=== PATIENT | female | born 1985 | race Caucasian/White ===

== ENCOUNTER → 2016-11-18 | Outpatient (CLI) | payer OTHER ==
[~2016-11-18] MED LIST: FLOM5CAP PO; PERC5TAB6 PO
--- NOTE | 2016-11-19 02:20 | REP ---
Clinical: Nephroureterolithiasis. Technique: Single supine view of the abdomen and pelvis. Comparison: None. Findings: Bilateral renal calcifications are suggested measuring 6 mm in the right kidney and 8 mm in left kidney. No obvious ureteral calcifications are appreciated. However, evaluation of the urinary tract system is somewhat limited due to technique and overlying bowel gas pattern. Mild to moderate fecal stasis and constipation cannot be excluded. No evidence for bowel obstruction. No organomegaly. Skeletal structures are intact. Impression: Bilateral renal calcifications suggested. Further evaluation of the urinary tract system is limited. Fecal stasis suggested. Signed by Werner Grande MD 11/19/2016 02:11 A
== END ==
LOC: M SMT 09:08
PROVIDERS: ATTEND Nurse Practitioner Women's Health
DX: N20.1 Calculus of ureter (principal)

== ENCOUNTER → 2016-12-02 | Day surgery (SDC) | payer OTHER ==
[~2016-12-02] VITALS: Ht 157.5 cm; Wt 63.5 kg
[~2016-12-02] MED LIST changes: +CIPR500T19 PO; +LIDOCAINE 2% INJ 100 MG/5 ML SDV (FOR ANES.) As Ordered ONE; +LR 1,000 ML IV ONE; +METOCLOPRAMIDE INJ 10MG/2ML VIAL (J2765) As Ordered ONE; +METOCLOPRAMIDE INJ 10MG/2ML VIAL (J2765) IV ONE; +MIDAZOLAM INJ 2 MG/2 ML VIAL (J2250) As Ordered ONE; +ONDANSETRON 4MG/2ML VIAL (J2405) As Ordered ONE; +OXYC1TAB23 PO; +PERCOCET 5MG/325MG TAB PO PRN; +PROPOFOL 200 MG/20 ML VIAL As Ordered ONE; +fentaNYL 100 MCG/2 ML INJECTION (J3010) As Ordered ONE
[2016-12-02 09:41] LABS: CONTROL LINE UCG INT CTR LINE PRESENT
[2016-12-02 09:44] LABS: INR 1.01
[2016-12-02 13:20] VITALS: BP 97/52
--- NOTE | 2016-12-03 02:48 | REP ---
Clinical: Nephrolithiasis. Comparison: 11/18/2016. Findings: Single supine view of the abdomen demonstrates bilateral intrarenal calculi essentially unchanged in appearance. Calcifications overlying the right renal silhouette measure up to approximately 5 mm and calcifications overlying the left renal silhouette measure up to approximately 6.5 mm. Bowel gas pattern is nonspecific. Skeletal structures are intact. Impression: Bilateral nephrolithiasis similar to prior examination. Signed by Werner Grande MD 12/03/2016 02:40 A
--- NOTE | 2016-12-03 06:35 | RO ---
DATE OF PROCEDURE: 12/02/2016 PREPROCEDURE DIAGNOSIS: Left renal stone. POSTPROCEDURE DIAGNOSIS: Left renal stone. FINDINGS: This is an 8 mm left renal stone in the mid pole. PROCEDURE: Left extracorporeal shock wave lithotripsy. SURGEON: Remi Henderson MD GEOTECHNICIAN: None. ANESTHESIA: Monitored anesthesia care (MAC). COMPLICATIONS: None. ESTIMATED BLOOD LOSS: N/A. HISTORY OF PRESENT ILLNESS: 31-year-old female patient with an 8 mm stone in mid collecting system of the left kidney. For this reason, she has consented for a left extracorporeal shock wave lithotripsy. DESCRIPTION OF PROCEDURE: With the patient in supine position under after finding the stone with ultrasound and x-ray, which was fairly easy, we gave a total of 2500 shock wave lithotripsies at a power of 1 to 20. The first 100 shock waves were done at a level of 1 to 5. The following 100 shock wave were done at a level of 6 to 10. The following 100 shock waves were done at a level of 11 to 15. The final 2200 shock waves lithotripsies were done at a power of 16 to 20. There were no complications during surgery. The patient will followup at [facility] in about 2 weeks. She will go home with pain medication and Flomax.
== END ==
LOC: M SDC 08:06
PROVIDERS: ATTEND Urology
DX: N20.0 Calculus of kidney (principal); J45.909 Unspecified asthma, uncomplicated; K21.9 Gastro-esophageal reflux disease without esophagitis; Z79.899 Other long term (current) drug therapy; Z91.010 Allergy to peanuts
CPT/HCPCS: 36415; 50590; 74000; 84703; 85610; J0690; J2250; J2405; J2765; J3010

== ENCOUNTER 2016-12-05 18:32 | Day surgery (SDC) | payer OTHER ==
[~2016-12-05] VITALS: Ht 157.5 cm; Wt 63.0 kg
[~2016-12-05 18:32] MED LIST changes: -CIPR500T19 PO; -CIPR500T3 PO; -LR 1,000 ML IV SCH; -MEPERIDINE INJ 25 MG/ML VIAL (J2175) IV PRN; -OMEP40CA2 PO; -ONDANSETRON 4MG/2ML VIAL (J2405) IV PRN; -OXYC1TAB23 PO; -TYLE650T35 PO; -fentaNYL 100 MCG/2 ML INJECTION (J3010) IV PRN
[2016-12-05] MEDS ORDERED: OXYC1TAB23 PO (19:51)
[2016-12-05] MEDS ORDERED: FLOM5CAP PO (19:51)
[2016-12-05] MEDS ORDERED: CIPROFLOXACIN/D5W 400 MG/200 ML BAG (J0744) As Ordered ONE (20:33)
[2016-12-05] MEDS ORDERED: CONRAY-60 60% 50ML VIAL (Q9961) As Ordered ONE (20:39)
[2016-12-05] MEDS ORDERED: fentaNYL 100 MCG/2 ML INJECTION (J3010) As Ordered ONE (20:41)
[2016-12-05] MEDS ORDERED: MIDAZOLAM INJ 2 MG/2 ML VIAL (J2250) As Ordered ONE (20:41)
[2016-12-05] MEDS ORDERED: PROPOFOL 200 MG/20 ML VIAL As Ordered ONE (20:48)
[2016-12-05] MEDS ORDERED: METOCLOPRAMIDE INJ 10MG/2ML VIAL (J2765) As Ordered ONE (20:48)
[2016-12-05] MEDS ORDERED: ONDANSETRON 4MG/2ML VIAL (J2405) As Ordered ONE (20:48)
[2016-12-05] MEDS ORDERED: LIDOCAINE 2% INJ 100 MG/5 ML SDV (FOR ANES.) As Ordered ONE (20:48)
[2016-12-05] MEDS ORDERED: oxyBUTYnin *DITROPAN XL* 5 MG TABCR PO SCH (21:00)
[2016-12-05] MEDS ORDERED: CIPR500T19 PO (21:14)
[2016-12-05] MEDS ORDERED: MEPERIDINE INJ 25 MG/ML VIAL (J2175) As Ordered ONE (21:31)
[2016-12-05] MEDS: MEPERIDINE INJ 25 MG/ML VIAL (J2175) IV PRN ×2 (21:36→21:43)
[2016-12-05 22:00] VITALS: BP 126/76
[2016-12-05] MEDS ORDERED: fentaNYL 100 MCG/2 ML INJECTION (J3010) IV PRN (22:15)
[2016-12-05] MEDS ORDERED: ONDANSETRON 4MG/2ML VIAL (J2405) IV PRN (22:15)
[2016-12-05 22:30] VITALS: BP 120/75
[2016-12-05 23:00] VITALS: BP 134/76
[2016-12-05] MEDS ORDERED: LR 1,000 ML IV SCH (23:30)
[2016-12-05 23:55] VITALS: BP 121/70
--- NOTE | 2016-12-06 12:11 | CR ---
DATE OF CONSULTATION: 12/05/2016 REASON FOR CONSULTATION: This 31-year-old female was evaluated and consultation was requested by Dr. Duarte on 12/05/2016, for left renal colic. She presents with a one-day history of left renal colic, following left kidney stone shock with lithotripsy (12/02/2016). Irritative voiding symptoms are also noted. Intermittent gross hematuria has also been reported. There is no history of dysuria, stone passage, fever, or constitutional symptoms. PAST MEDICAL HISTORY: Significant for thyroid cyst, gastroesophageal reflux disease, and wisdom teeth removal. REVIEW OF SYSTEMS: Negative for diabetes, hypertension, cardiac or pulmonary pathology, thyroid problems, headaches, epilepsy, cerebrovascular accident (CVA), glaucoma, peptic ulcer disease, cholelithiasis, abdominal surgery or blood-borne diseases. CURRENT MEDICATIONS: Omeprazole. ALLERGIES: She has a questionable allergy to ketorolac. SOCIAL HISTORY: She is and has two children. She is nonsmoker, does not consume alcohol. FAMILY HISTORY: Significant for hypertension on the paternal side. PHYSICAL EXAMINATION: General examination revealed comfortable individual. Her heart rate was 81, respiratory rate was 20, blood pressure was 136/75 and temperature 98.5 degrees Fahrenheit. Palpation of head and neck failed to reveal the presence of lymphadenopathy. Auscultation of chest was clear with normal heart sounds. Examination of the back and abdomen were benign. Urinalysis (12/05/2016) demonstrated a pH of 7.5 with no evidence of leukocytes, nitrites, or microhematuria. Serum hematologic and biochemical indices determination (12/05/2016) demonstrated a hemoglobin of 14.3, leukocyte count of 12.4, and creatinine of 0.9. Computed tomography of the abdomen and pelvis without intravenous contrast (12/05/2016) demonstrated collection of left distal ureteral calculi, the largest of which measured 4-5 mm. ASSESSMENT: 1. Left distal ureteral calculi, status post left kidney stone shock with lithotripsy (12/02/2016). 2. Gastroesophageal reflux disease. PLAN: The above findings were discussed with the patient, her family, and emergency staff. Following nothing by mouth status (1000 hours), cystoscopy, left retrograde ureteropyelography and double-J stent insertion will be performed. Following the procedure, she will be discharged home, and will followup with Dr. Remi Henderson in one week with a KUB radiograph. Should you require additional information, please do not hesitate to contact me. Thanking you for the confidence of your referral. Addendum: Perioperative intravenous ciprofloxacin will be provided.
--- NOTE | 2016-12-06 12:12 | RO ---
DATE OF PROCEDURE: 12/05/2016 PREOPERATIVE DIAGNOSIS: Left distal ureteral calculi status post shock wave lithotripsy. POSTOPERATIVE DIAGNOSIS: Left distal ureteral calculi status post shock wave lithotripsy. PROCEDURE: Cystoscopy, left retrograde ureteropyelography, #6 Tongan universal double J stent insertion, fluoroscopy. SURGEON: Angelito Paetl MD STEEL POURER: ANESTHESIA: General. COMPLICATIONS: None. ESTIMATED BLOOD LOSS: 0 mL. PROCEDURE: In lithotomy position, the patient was prepped and draped in the usual fashion. Weld Engineer plain fluoroscopy of the upper urinary tract confirmed the presence of a left distal ureter faintly radiopaque calculi. A #22 Tongan rigid cystoscope was advanced into the urinary bladder under direct vision. A #21 Tongan rigid cystoscope was advanced into the urinary bladder under direct vision. A urine specimen for culture and sensitivity was obtained. Paez cystoscopy revealed normal ureteric orifices bilaterally and normal urothelium. There was no evidence of tumor, active bleeding or urolithiasis. A normal bladder neck and urethra were noted. A #5 Tongan open ended ureteral catheter was used to intubate the left ureteric orifice. Retrograde ureteropyelography confirmed a distal ureter filling defect with mild proximal hydroureteronephrosis. Under fluoroscopy, a 0.038 Glidewire was advanced up into the left renal pelvis under fluoroscopy. The #5 Tongan open ended ureteral catheter was removed and a #6 Tongan [place] double J stent was advanced under fluoroscopy and direct vision. Its position was confirmed. Prior to removal of the instruments, the bladder was drained. At the conclusion of the procedure, sponge and instrument counts were correct. Estimated blood loss for the procedure was 0 mL. In the recovery room, the patient was alert and stable. DISPOSITION: Exit prescription (ciprofloxacin) provided. KUB and office visit with Remi Henderson MD in one week. Strain urine.
--- NOTE | 2016-12-06 12:13 | REP ---
Retrograde pyelogram: Six views. History: Left stent placement. Retrograde pyelogram. Fluoroscopy time is reported at 16 seconds. Findings: A sequence of six fluoroscopically obtained last image hold spot radiographs of the left abdomen document left ureteral cannulation, contrast injection, and double pigtailed ureteral stent placement. Signed by Deuce Lopez MD 12/06/2016 01:18 P
[2016-12-22] MEDS ORDERED: OMEP40CA2 PO (16:20)
[2016-12-28] MEDS ORDERED: TYLE650T35 PO (09:03)
[2016-12-28] MEDS ORDERED: CIPR500T3 PO (09:03)
== END 2016-12-05 23:55 | disposition home or self-care (01) ==
LOC: EDBD 18:32 → M ED 20:13 → M SDC 20:35 → M PED 22:00 → M SDC 23:55
PROVIDERS: ATTEND Urology
DX: N20.1 Calculus of ureter (principal); K21.9 Gastro-esophageal reflux disease without esophagitis; Z79.899 Other long term (current) drug therapy
CPT/HCPCS: 52332; 74420; 87086; 99284; C1726; C1769; C2617; J0744; J2175; J2250; J2405; J2765; J3010; Q9961

== ENCOUNTER → 2016-12-05 | Day surgery (SDC) | payer OTHER ==
[~2016-12-05] MED LIST changes: +CIPR500T3 PO; -LIDOCAINE 2% INJ 100 MG/5 ML SDV (FOR ANES.) As Ordered ONE; -LR 1,000 ML IV ONE; +LR 1,000 ML IV SCH; +MEPERIDINE INJ 25 MG/ML VIAL (J2175) IV PRN; -METOCLOPRAMIDE INJ 10MG/2ML VIAL (J2765) As Ordered ONE; -METOCLOPRAMIDE INJ 10MG/2ML VIAL (J2765) IV ONE; -MIDAZOLAM INJ 2 MG/2 ML VIAL (J2250) As Ordered ONE; +OMEP40CA2 PO; -ONDANSETRON 4MG/2ML VIAL (J2405) As Ordered ONE; +ONDANSETRON 4MG/2ML VIAL (J2405) IV PRN; +PERC5TAB12 PO; -PERC5TAB6 PO; -PERCOCET 5MG/325MG TAB PO PRN; -PROPOFOL 200 MG/20 ML VIAL As Ordered ONE; +TYLE650T35 PO; -fentaNYL 100 MCG/2 ML INJECTION (J3010) As Ordered ONE; +fentaNYL 100 MCG/2 ML INJECTION (J3010) IV PRN
== END ==
LOC: M SDC 08:00
PROVIDERS: ATTEND Urology
DX: N20.1 Calculus of ureter (principal)

== ENCOUNTER → 2016-12-15 | Outpatient (CLI) | payer OTHER ==
[~2016-12-15] MED LIST changes: +CIPR500T19 PO; +CIPR500T3 PO; +OMEP40CA2 PO; +OXYC1TAB23 PO; +TYLE650T35 PO
--- NOTE | 2016-12-15 10:33 | REP ---
Clinical: Nephrolithiasis. Technique: Single supine view of the abdomen and pelvis. Comparison: 12/02/2016. Findings: Left ureteral stent is in satisfactory position. Bilateral intrarenal calculi are identified measuring up to approximately 5 mm. Calcification adjacent to the distal third of the stent within the pelvis may represent ureteral stone measuring approximately 4 mm. Bowel gas pattern is nonspecific. No organomegaly. Skeletal structures intact. Impression: Urinary tract calcifications as described above. Signed by Werner Grande MD 12/15/2016 10:24 A
== END ==
LOC: M SMT 10:00
PROVIDERS: ATTEND Nurse Practitioner Women's Health
DX: N20.0 Calculus of kidney (principal)

== ENCOUNTER → 2016-12-28 | Day surgery (SDC) | payer OTHER ==
[~2016-12-28] VITALS: Ht 157.5 cm; Wt 63.5 kg
[~2016-12-28] MED LIST changes: +CONRAY-60 60% 50ML VIAL (Q9961) As Ordered ONE; +HYDROmorphone HCL 1 MG/ML SYRINGE (J1170) IV PRN; +LIDOCAINE 2% INJ 100 MG/5 ML SDV (FOR ANES.) As Ordered ONE; +LR 1,000 ML IV SCH; +MIDAZOLAM INJ 2 MG/2 ML VIAL (J2250) As Ordered ONE; +ONDANSETRON 4MG/2ML VIAL (J2405) As Ordered ONE; +ONDANSETRON 4MG/2ML VIAL (J2405) IV PRN; +PERCOCET 5MG/325MG TAB As Ordered ONE; +PERCOCET 5MG/325MG TAB PO PRN; +PROPOFOL 200 MG/20 ML VIAL As Ordered ONE; +dexameTHASONE 4 MG/ML 1ML VIAL (J1100) As Ordered ONE; +fentaNYL 100 MCG/2 ML INJECTION (J3010) IV PRN; +fentaNYL 250 MCG/5 ML INJECTION (J3010) As Ordered ONE
[2016-12-28 06:38] LABS: CONTROL LINE HCG INT CTR LINE PRESENT
[2016-12-28 06:50] LABS: INR 1.01
--- NOTE | 2016-12-28 09:31 | REP ---
RETROGRADE PYELOGRAM: Single view. HISTORY: Kidney stones. 31 seconds of fluoroscopy time is reported. FINDINGS: A single fluoroscopically obtained last image hold spot radiograph of the abdomen documents double pigtail ureteral stent placement on the left. Signed by Deuce Lopez MD 12/28/2016 04:01 P
[2016-12-28 10:15] VITALS: BP 135/82
--- NOTE | 2016-12-29 06:33 | RO ---
DATE OF PROCEDURE: 12/28/2016 PREOPERATIVE DIAGNOSIS: Left ureteral stones. POSTOPERATIVE DIAGNOSIS: Left ureteral stones. FINDINGS: Left ureteral stones times six plus left JJ stent placement. PROCEDURE: Cystoscopy, plus left ureteroscopy plus basket extraction of stones plus left JJ stent exchange #6 [place]ian [place] Cook. SURGEON: Dr. Remi Henderson FURNITURE INSPECTOR: None. ANESTHESIA: General. COMPLICATIONS: None. ESTIMATED BLOOD LOSS: N/A. HISTORY OF PRESENT ILLNESS: 31-year-old female patient that has a left JJ stent and a history of having had a ESWL of left kidney stone. The patient has had multiple fragments passing. She had severe pain. For this reason, a left JJ stent was placed in position. She is here today for cystoscopy plus left ureteroscopy plus basket extraction of stone, possible laser stone lithotripsy, possible JJ stent exchange. She has signed the consent form. PROCEDURE DESCRIPTION: With patient under general anesthesia in supine modified low lithotomy position, after prepping and draping the area of concern which included the entire genitalia and abdomen, we started by introducing a cystoscopy #21-Ghanaian in diameter with 30 lens. The urethra and bladder neck were totally normal. The bladder had a left JJ stent. With endoscopic forceps, we grabbed the JJ stent and pulled it out of the body of the patient. We cut the distal end and passed a guidewire up to the kidney and took out the JJ stent. We then proceeded to actually load a semi-rigid ureteroscope #7-Ghanaian in diameter. In the distal ureter, we found two fragments of stones. With a #0 tip basket 1.9 Ghanaian in diameter, we grabbed each one and took it out of the body of the patient. We then proceeded to actively scope the ureter, distal mid and proximal ureter with a semi-rigid ureteroscope. There were no stones left. At that moment in time, we loaded a parallel ureteral access sheath 28 cm in length, #12-Ghanaian in diameter following the guidewire up to the proximal ureter. We then took out the obturator from inside and left the guidewire parallel to the ureteral access sheath. Through this ureteral access sheath, we placed a flexible ureteroscope Olympus up to the kidney. We did a formal nephroscopy upper pole, mid pole and lower pole. We found in the lower pole three other stones. We grabbed them with a basket each one and took it out of the body of the patient. We then found in the mid pole another 3 mm stone and we grabbed it was a basket and took it out of the body of the patient. We then did a retrograde ureteroscopy by removing the ureteroscope and the ureteral access sheath at the same time. There were no stones left in the kidney and the ureter. We then proceeded to pass a cystoscope and load a guidewire #6-[place]ian [place] Cook to drain the kidney following the guidewire up to the kidney. Once the stent was in good position, we took the guidewire out. We could see the curl in the kidney and the curl in the bladder.
== END ==
LOC: M SDC 05:50
PROVIDERS: ATTEND Urology
DX: N20.1 Calculus of ureter (principal); J45.909 Unspecified asthma, uncomplicated; K21.9 Gastro-esophageal reflux disease without esophagitis; Z79.899 Other long term (current) drug therapy; Z79.1 Long term (current) use of non-steroidal anti-inflammatories (NSAID); Z91.010 Allergy to peanuts; Z88.5 Allergy status to narcotic agent
CPT/HCPCS: 36415; 52332; 52352; 74420; 82360; 84703; 85610; 88300; C1726; C2617; J0690; J1100; J2250; J2405; J3010; Q9961

== ENCOUNTER → 2017-01-14 | Outpatient (REF) | payer OTHER ==
[~2017-01-14] MED LIST changes: -CONRAY-60 60% 50ML VIAL (Q9961) As Ordered ONE; -HYDROmorphone HCL 1 MG/ML SYRINGE (J1170) IV PRN; -LIDOCAINE 2% INJ 100 MG/5 ML SDV (FOR ANES.) As Ordered ONE; -LR 1,000 ML IV SCH; -MIDAZOLAM INJ 2 MG/2 ML VIAL (J2250) As Ordered ONE; -ONDANSETRON 4MG/2ML VIAL (J2405) As Ordered ONE; -ONDANSETRON 4MG/2ML VIAL (J2405) IV PRN; -PERCOCET 5MG/325MG TAB As Ordered ONE; -PERCOCET 5MG/325MG TAB PO PRN; -PROPOFOL 200 MG/20 ML VIAL As Ordered ONE; -dexameTHASONE 4 MG/ML 1ML VIAL (J1100) As Ordered ONE; -fentaNYL 100 MCG/2 ML INJECTION (J3010) IV PRN; -fentaNYL 250 MCG/5 ML INJECTION (J3010) As Ordered ONE
--- NOTE | 2017-01-15 09:03 | ED PDOC ---
Provider Note Received call from patient. She had a stent removed tuesday and having some flank pain at the side of the stent. She denies fever, chills, nausea, vomiting. Urinalysis is negative for bacteria. I recommended that she come to ER if pain worsens or if she develops fever. Currently pain is controlled with Tylenol. Recommend to call office Tuesday KARYNA RUIZ MD Jan 15, 2017 09:03
== END ==
LOC: M SMT 13:10
PROVIDERS: ATTEND Urology
DX: N20.0 Calculus of kidney (principal)

== ENCOUNTER → 2017-01-25 | Outpatient (CLI) | payer OTHER ==
--- NOTE | 2017-01-25 10:39 | REP ---
Supine abdomen single AP view: Comparison is 12/15/2016. The previous left ureteral stent has been removed. The calcifications identified previously in the lower pole left kidney are no longer present. The calcified occasion identified adjacent to the distal third of the stent previously is no longer present. There is a persisting calcification at the mid pole of the right kidney measuring 5 mm, unchanged. There is a small calcification inferiorly in the pelvis to the left of midline, unchanged, likely a phlebolith. The bowel gas pattern is normal. Signed by Berny Valencia MD 01/25/2017 10:30 A
== END ==
LOC: M SMT 10:16
PROVIDERS: ATTEND Nurse Practitioner Women's Health
DX: N20.0 Calculus of kidney (principal)

== ENCOUNTER 2017-02-10 11:33 | Day surgery (SDC) | payer OTHER ==
[~2017-02-10] VITALS: Ht 157.5 cm; Wt 65.8 kg
[2017-02-10] MEDS ORDERED: LR 1,000 ML IV ONE (12:00)
[2017-02-10 12:40] LABS: INR 1.01
[2017-02-10 13:07] LABS: CONTROL LINE UCG INT CTR LINE PRESENT
[2017-02-10] MEDS ORDERED: PROPOFOL 200 MG/20 ML VIAL As Ordered ONE (13:39)
[2017-02-10] MEDS ORDERED: fentaNYL 100 MCG/2 ML INJECTION (J3010) As Ordered ONE (13:39)
[2017-02-10] MEDS ORDERED: MIDAZOLAM INJ 2 MG/2 ML VIAL (J2250) As Ordered ONE (13:39)
[2017-02-10] MEDS ORDERED: LIDOCAINE 2% INJ 100 MG/5 ML SDV (FOR ANES.) As Ordered ONE (13:39)
[2017-02-10] MEDS ORDERED: METOCLOPRAMIDE INJ 10MG/2ML VIAL (J2765) As Ordered ONE (13:40)
[2017-02-10] MEDS ORDERED: dexameTHASONE 4 MG/ML 1ML VIAL (J1100) As Ordered ONE (13:40)
[2017-02-10] MEDS ORDERED: ONDANSETRON 4MG/2ML VIAL (J2405) As Ordered ONE (13:40)
[2017-02-10] MEDS ORDERED: CONRAY-60 60% 50ML VIAL (Q9961) As Ordered ONE ×2 (13:48→14:05)
[2017-02-10] MEDS ORDERED: TYLE650T35 PO (14:23)
[2017-02-10] MEDS ORDERED: CIPR500T3 PO (14:23)
--- NOTE | 2017-02-10 15:11 | REP ---
RETROGRADE PYELOGRAM: Three views. HISTORY: Right renal stone. FINDINGS: 27 seconds of fluoroscopy time is reported. A sequence of three last image hold fluoroscopic spot views of the right abdomen document right ureteral cannulation, contrast injection, and double pigtail ureteral stent placement. Signed by Deuce Lopez MD 02/11/2017 10:04 A
[2017-02-10] MEDS ORDERED: LR 1,000 ML IV SCH (15:15)
[2017-02-10] MEDS ORDERED: fentaNYL 100 MCG/2 ML INJECTION (J3010) IV PRN (15:15)
[2017-02-10] MEDS ORDERED: ONDANSETRON 4MG/2ML VIAL (J2405) IV PRN (15:15)
[2017-02-10] MEDS ORDERED: PERCOCET 5MG/325MG TAB PO ONE (16:00)
[2017-02-10 16:05] VITALS: BP 125/77
--- NOTE | 2017-02-11 09:16 | RO ---
DATE OF PROCEDURE: 02/10/2017 PREPROCEDURE DIAGNOSIS: Right renal stone. POSTPROCEDURE DIAGNOSIS: Right renal stone. FINDINGS: 6 mm right renal stone. PROCEDURE: Cystoscopy, plus right retrograde pyelogram, plus right ureteroscopy, plus basket extraction of stones, plus right double J stent placement, #6-[place] Islander Cavalier Cook. SURGEON: Remi Henderson MD MACHINE HOSE CUTTER: None. ANESTHESIA: General. COMPLICATIONS: None. ESTIMATED BLOOD LOSS: N/A. HISTORY OF THE PRESENT ILLNESS: This is a 31-year-old female patient who actually has a kidney stone in the upper pole of the right kidney, which is symptomatic. For this reason, she has elected for a cystoscopy plus right retrograde pyelogram, possible laser stone lithotripsy, possible basket extraction of stones, right ureteroscopy, plus right double J stent placement. The patient is here today, consented for the procedure. DESCRIPTION OF PROCEDURE: In a patient under general anesthesia, in supine modified low lithotomy position, after prepping and draping the area of concern, which included the entire genitalia and abdomen, we introduced the cystoscope #21-[place] Islander in diameter with a 30-degree lens under videoendoscopic guidance. The urethra and bladder neck were totally normal. The bladder had no tumors, no stones, no foreign objects. Both ureteral orifices were seen excreting clear urine. We then proceeded to pass a #5-[place] Islander Pollack catheter into the right ureteral orifice and did a retrograde pyelogram. We could see upper pole, mid pole and lower pole and the ureter intact. There was a filling defect in the upper pole of the kidney. At that moment in time, we passed a guidewire up to the upper pole and took the Pollack catheter out. We then passed a 28 cm #12-[place] Islander in diameter ureteral access sheath following the guidewire. We then took the obturator out, and we left the guidewire parallel to the ureteral access sheath. The ureteral access sheath was advanced up to the proximal ureter. At that moment in time, we introduced the flexible ureteroscopy and did informal nephroscopy. Upper pole, mid pole and lower poles were examined. We found a 6 mm stone in the upper pole. With a 1.9 [place] Islander ZeroTip basket, we grabbed the stone and pulled it out of the body of the patient and then sent it for permanent pathology analysis and biochemical analysis. We then did an informal nephroscopy with the flexible ureteroscope, upper pole, mid pole and lower pole. There were no stones left. We then did a retrograde ureteroscopy by removing the ureteral access sheath and also the flexible ureteroscope out of the body of the patient. There were no stones left behind in the ureter. We then replaced the cystoscope and following the guidewire left behind, we placed a double J stent up to the kidney. Once the stent was in good position, we actually took the guidewire out. We could see the curl in the kidney and the curl in the bladder. We then proceeded to empty the bladder and take the cystoscope out. PLAN: The patient will go home today with antibiotic and pain medication. She will followup in 1-2 weeks at [facility] [place] for doing a removal of the right double J stent in place. There were no complications. Stones were sent for biochemical analysis.
== END 2017-02-10 16:20 | disposition home or self-care (01) ==
LOC: M SDC 11:33
PROVIDERS: ATTEND Urology
DX: N20.0 Calculus of kidney (principal); J45.909 Unspecified asthma, uncomplicated; K21.9 Gastro-esophageal reflux disease without esophagitis; Z87.442 Personal history of urinary calculi; Z79.899 Other long term (current) drug therapy; Z91.010 Allergy to peanuts; Z88.5 Allergy status to narcotic agent
CPT/HCPCS: 36415; 52332; 52352; 74420; 82360; 84703; 85610; 88300; C1769; C1894; C2617; J0690; J1100; J2250; J2405; J2765; J3010; Q9961

== ENCOUNTER → 2020-01-16 | Outpatient (CLI) | payer OTHER ==
[~2020-01-16] MED LIST changes: +ACET650T61 PO; +FLOM0.4C39 PO; -FLOM5CAP PO; -OMEP40CA2 PO; +OMEP40CA97 PO; -TYLE650T35 PO
--- NOTE | 2020-03-07 08:32 | REP ---
NONCONTRAST CHEST CT CLINICAL INDICATION: Follow-up pulmonary nodules. TECHNIQUE: Axial noncontrast images from the thoracic inlet to the upper abdomen with coronal and sagittal reformations. COMPARISON: Outside examination dated 10/03/2019. FINDINGS: The few scattered previously identified significant opacities have resolved and likely represented small areas of atelectasis/acute pneumonia. Small stable primarily subpleural densities measuring up to 4 mm area again noted and remain stable and consistent with very subtle small areas of scarring. No new acute consolidation, nodule, or mass lesion. No pleural fusion. No pneumothorax. Tracheobronchial tree is patent. No obvious adenopathy. Further evaluation of the mediastinum demonstrates a relatively normal thoracic aorta, pulmonary vasculature, and heart/pericardium. No pericardial effusion. Small amount of residual thymic tissue is noted and nonspecific. Surrounding musculoskeletal structures are intact and without acute osseous abnormality. IMPRESSION: * The previously noted few scattered significant opacities have resolved and likely represented small areas of atelectasis or resolving pneumonia. * No significant or new mediastinal or pleural parenchymal processed appreciated. MTDD
== END ==
LOC: M RAD 15:00
PROVIDERS: ATTEND Internal Medicine Pulmonary Disease
DX: R91.8 Other nonspecific abnormal finding of lung field (principal)

== ENCOUNTER 2023-07-26 12:14 | Day surgery (SDC) | payer OTHER ==
[~2023-07-26] VITALS: Ht 157.5 cm; Wt 73.5 kg
[~2023-07-26 12:14] MED LIST changes: +GNPTAB37 PO; +IBUP-1114 PO; +OMEP-173 PO; +OMEP40CA4 PO; -OMEP40CA97 PO
[2023-07-26] MEDS: ONDANSETRON 4MG 2ML VIAL IV ONE (12:45)
[2023-07-26] MEDS: NS 1,000 ML IV ONE (12:45)
[2023-07-26 14:34] VITALS: TEMP 96.9
[2023-07-26 15:10] VITALS: BP 126/88; O2SAT 98
== END 2023-07-26 15:13 | disposition home or self-care (01) ==
LOC: M OPP 12:14
PROVIDERS: ATTEND Internal Medicine Gastroenterology
DX: K20.90 Esophagitis, unspecified without bleeding (principal); R13.10 Dysphagia, unspecified; R12 Heartburn; Z79.1 Long term (current) use of non-steroidal anti-inflammatories (NSAID); Z79.899 Other long term (current) drug therapy; Z88.6 Allergy status to analgesic agent; Z88.8 Allergy status to other drugs, medicaments and biological substances; Z91.010 Allergy to peanuts
CPT/HCPCS: 43239; 88305; J2405

== ENCOUNTER → 2025-02-25 | Outpatient (REF) | payer OTHER ==
[~2025-02-25] MED LIST changes: -FLOM0.4C39 PO; +TAMS-18 PO
== END ==
LOC: M LAB REF 14:55
PROVIDERS: ATTEND Surgery
DX: D48.5 Neoplasm of uncertain behavior of skin (principal)